=== PATIENT | female | born 1980 | race Caucasian/White ===

== ENCOUNTER 2019-06-13 22:42 | Emergency (ER) | payer OTHER, SELFPAY ==
[2019-06-13 23:00] VITALS: BP 142/102; PULSE 110; RESP 18; TEMP 36.9; O2SAT 96
--- NOTE | 2019-06-13 23:05 | ED_ITS ---
HPI - Skin/Abscess/Foreign Bdy General Chief complaint: Skin/Abscess/Foreign Body Stated complaint: Slipped and hit head Time Seen by Provider: 06/13/19 22:46 Source: patient and EMS Mode of arrival: EMS Limitations: no limitations History of Present Illness HPI narrative: Patient comes emergency department complaining of a laceration to the back of her head after ?tripping and falling? [place]. Patient does not know exactly how she tripped. She states she has been drinking tonight, and fell and hit her head. Patient denies loss of consciousness. She was not injured in any other way. Medics found the patient to be ambulatory, but with a bleeding wound on the back of her head. Patient denies any other complaints at this time. No headache. No visual changes. No neck pain. No nausea or vomiting. Review of Systems Review of Systems ROS Unobtainable: All systems reviewed & are unremarkable except as noted in HPI and below Constitutional Constitutional: Denies chills, Denies fatigue, Denies fever(s), Denies frequent falls, Denies lethargy and Denies weakness Eyes Eyes: Denies change in vision, Denies eye discharge, Denies irritation and Denies loss of vision ENT Ears, Nose, Mouth, and Throat: Denies change in voice, Denies dizziness, Denies neck pain, Denies sore throat and Denies throat swelling Cardiovascular Cardiovascular: Denies chest pain, Denies irregular heart rhythm, Denies lightheadedness, Denies palpitations, Denies dyspnea, Denies dyspnea on exertion and Denies orthopnea Respiratory Respiratory: Denies cough, Denies dyspnea, Denies dyspnea on exertion and Denies wheezing Gastrointestinal Gastrointestinal: Denies abdominal pain, Denies change in bowel habits, Denies diarrhea, Denies nausea and Denies vomiting Genitourinary Genitourinary: Denies hematuria, Denies flank pain, Denies urinary incontinence and Denies urinary urgency Musculoskeletal Musculoskeletal: Denies back pain, Denies muscle weakness, Denies neck pain, Denies numbness and Denies tingling Integumentary/Breasts Skin/Breast: Denies pruritus, Denies erythema and Denies rash Comments: Scalp wound Neurologic Neurologic: Denies behavioral changes, Denies confusion, Denies dizziness, Denies frequent falls, Denies loss of vision, Denies numbness, Denies tingling and Denies weakness Psychiatric Psychiatric: Denies anxiety, Denies behavioral changes, Denies confusion, Denies depression, Denies homicidal ideation and Denies suicidal ideation Endocrine Endocrine: Denies fatigue, Denies flushing and Denies palpitations Hematologic/Lymphatic Hematologic/Lymphatic: Denies easy bruising Allergic/Immunologic Allergic/Immunologic: Denies urticaria, Denies throat swelling and Denies wheezing [facility] Medical History Healthy adult (Acute) Surgical History No pertinent past surgical history (Acute) Social History Smoking Status: Never smoker Social History Smoking Status: Never smoker Exam Narrative Exam Narrative: Patient is emotionally distraught and crying. She smells mildly of alcohol. She has an approximately 4 cm diameter area of swelling and hematoma on her occipital area, with an approximately 3 cm laceration located horizontally across the center of the hematoma. No bony deformity. Mild active bleeding. Initial Vital Signs Initial Vital Signs: Vital Signs Temperature 98.5 F 06/13/19 23:00 Pulse Rate 110 H 06/13/19 23:00 Respiratory Rate 18 06/13/19 23:00 Blood Pressure 142/102 H 06/13/19 23:00 Pulse Oximetry 96 06/13/19 23:00 Const General: cooperative and well developed Nutritional Appearance: well nourished Orientation: alert, awake, oriented x3 and not confused [facility] Head: normocephalic, No palpable skull fracture, scalp lesion (See above) and scalp tenderness (See above) Ears: external ears normal and TM's normal bilaterally Nose: external nose normal and No nasal discharge Face and sinus: face symmetric and No dry mucous membranes Mouth: oral mucosae normal and moist mucous membranes Teeth and gingiva: dentition normal Eyes General: appearance normal, both eyes and all related structures Eyelids: eyelids normal Conjunctivae: conjunctivae normal Sclera: sclerae normal Pupils: PERRL EOM: EOM intact bilaterally Neck Neck: normal visual inspection, trachea midline, No lymphadenopathy, No midline deformity and No JVD Lymphatic: No lymphedema Chest Chest: normal inspection of the chest Resp Effort & Inspection: normal respiratory effort, able to speak in complete sentences, no respiratory distress and no use of accessory muscles Back/Spine/Pelvis Back: No CVA tenderness Cervical Spine: cervical ROM normal and No pain with cervical ROM Thoracic/Lumbar Spine: thoracic and lumbar spine normal to inspection Skin General: no rashes or lesions noted, No jaundice and No petechiae Other: Scalp laceration as noted above. Neuro General: alert, awake, oriented x3, gait normal and no focal motor deficits Cognition: normal cognition Speech: speech normal Motor: muscle tone normal throughout and strength 5/5 throughout Sensory Exam: no sensory deficits noted Extrem General: full ROM, no clubbing, cyanosis or edema, no pedal edema and no calf tenderness Psych Appearance: well kempt Mental Status: mental status grossly normal Attitude: cooperative Thought Content: normal and suicidality Judgment: judgment good Procedures Laceration Repair Laceration 1: Site: scalp Size (cm): 3 Description: linear Depth: simple, single layer Local Anesthetic: lidocaine 1% Amount of anesthesia used (mL): 10 Pre-repair: wound explored Skin layer closed with: brock Number of sutures: 6 ([place]) Course Course Course Narrative: Laceration was repaired with brock as noted above. Patient was informed of principles of wound care in the need for staple removal in 10 days. The patient was mildly intoxicated, and so we did make sure she left with a ride who was sober. We have discussed home management of the symptoms, as well as the usual indications for return. Orders Ordered: Discontinued Medications Lidocaine HCl (Xylocaine 1%) 1 ml SUBCUT NOW ONE Stop: 06/13/19 22:36 Last Admin: 06/13/19 22:39 Dose: Not Given Documented by: BEAU Lidocaine/Sodium Bicarbonate (Buffered Lidocaine 10 Ml Syr) 10 ml INJ NOW ONE Stop: 06/13/19 22:38 Lidocaine/Sodium Bicarbonate (Buffered Lidocaine 10 Ml Syr) 10 ml INJ NOW ONE Stop: 06/13/19 22:50 Vital Signs Vital signs: Vital Signs - 8 hr 06/13/19 23:00 Temperature 98.5 F Pulse Rate 110 H Respiratory Rate 18 Blood Pressure 142/102 H Pulse Oximetry 96 MDM - Skin/Abscess/Foreign Bdy Medical Records Attestation: I reviewed the patient's medical records. Discharge Plan Departure Patient Disposition: Home Clinical Impression: Laceration of scalp Discharge Date/Time: 06/14/19 00:08 Instructions: DI for Laceration Repair -- Brock, DI for Laceration Repair of the Scalp Activity Restrictions/Additional Instructions: Your wound has been repaired with 6 brock today. These will need to be remov ed in about 10 days. Your wound may lose blood for the next 24 hours, but after that, should dry up and form a scab. You have a large bruise with blood collection under your skin, that is causing some swelling. This will go down over the next week. If you develop redness spreading away from the wound, or for wound drains pus, you will need to have the wound rechecked. Referrals: [facility] [Provider Group]
--- NOTE | 2019-06-13 23:06 | PC.NURSE ---
lidocaine adminstered by Dr Enrique for stapling
[2019-06-14 00:03] VITALS: BP 125/78; PULSE 103; RESP 18; O2SAT 100
== END 2019-06-14 00:08 | disposition home or self-care (01) ==
LOC: ED 06-14 00:08
PROVIDERS: Emergency Provider Emergency Medicine
DX: S01.01XA Laceration without foreign body of scalp, initial encounter (principal); W01.0XXA Fall on same level from slipping, tripping and stumbling without subsequent striking against object, initial encounter
CPT/HCPCS: 12002; 99282